=== PATIENT | female | born 1990 | race Caucasian/White ===

== ENCOUNTER → 2017-11-25 | Emergency (ER) | payer OTHER ==
[~2017-11-25] VITALS: Ht 165.1 cm; Wt 74.4 kg
[~2017-11-25] MED LIST: AMOX1TAB12 PO; DOLOGESIC CAPSU1 CAP PO; INTESTINEX680 MG PO; PEPCID20 MG PO; ZOFRAN4 MG PO
== END | disposition home or self-care (01) ==
LOC: ER 17:01
DX: B34.9 Viral infection, unspecified (principal)

== ENCOUNTER 2018-02-11 03:22 | Emergency (ER) | payer OTHER ==
[~2018-02-11] VITALS: Ht 165.1 cm; Wt 72.6 kg
[2018-02-11] MEDS ORDERED: ZANTAC300 MG PO (07:08)
[2018-02-11] MEDS ORDERED: LEVSIN/SL0.125 MG PO (07:08)
[2018-02-11] MEDS ORDERED: ZOFRAN4 MG PO (07:08)
[2018-02-11] MEDS ORDERED: INTESTINEX680 M1 PO (07:08)
== END 2018-02-11 07:39 | disposition home or self-care (01) ==
LOC: ER 03:22
DX: K52.89 Other specified noninfective gastroenteritis and colitis (principal); E86.0 Dehydration

== ENCOUNTER 2018-07-22 10:46 | Emergency (ER) | payer OTHER ==
[~2018-07-22] VITALS: Ht 167.6 cm; Wt 75.3 kg
[~2018-07-22 10:46] MED LIST changes: +INTESTINEX680 M1 PO; +LEVSIN/SL0.125 MG PO; +ZANTAC300 MG PO
[2018-07-22] MEDS ORDERED: SYNTHROID50 MCG PO (10:56)
== END 2018-07-22 12:53 | disposition home or self-care (01) ==
LOC: ER 10:46
DX: B34.9 Viral infection, unspecified (principal)

== ENCOUNTER 2018-09-25 13:04 | Emergency (ER) | payer OTHER ==
[~2018-09-25] VITALS: Ht 167.6 cm; Wt 81.2 kg
[~2018-09-25 13:04] MED LIST changes: +SYNTHROID50 MCG PO
== END 2018-09-25 16:41 | disposition home or self-care (01) ==
LOC: ER 13:04
DX: B34.9 Viral infection, unspecified (principal)

== ENCOUNTER 2018-09-30 12:14 | Emergency (ER) | payer OTHER ==
[~2018-09-30] VITALS: Ht 170.2 cm; Wt 74.8 kg
[2018-09-30] MEDS ORDERED: ZOFRAN8 MG PO (16:18)
[2018-09-30] MEDS ORDERED: INTESTINEX680 M1 PO (16:18)
[2018-09-30] MEDS ORDERED: ZITHROMAX TRI-500 MG PO (16:18)
[2018-09-30] MEDS ORDERED: MEDROLPACK PO (16:18)
== END 2018-09-30 20:31 | disposition home or self-care (01) ==
LOC: ER 12:14
DX: B34.9 Viral infection, unspecified (principal); K29.00 Acute gastritis without bleeding

== ENCOUNTER 2021-03-11 19:57 | Emergency (ER) | payer OTHER ==
[~2021-03-11] VITALS: Ht 167.6 cm; Wt 86.2 kg
[~2021-03-11 19:57] MED LIST changes: +MEDROLPACK PO; +ZITHROMAX TRI-500 MG PO; +ZOFRAN8 MG PO
== END 2021-03-12 00:33 | disposition home or self-care (01) ==
LOC: ER 19:57
DX: E07.89 Other specified disorders of thyroid (principal); F06.4 Anxiety disorder due to known physiological condition

== ENCOUNTER 2021-09-11 19:49 | Emergency (ER) | payer OTHER ==
[~2021-09-11] VITALS: Ht 167.6 cm; Wt 81.6 kg
[2021-09-11] MEDS ORDERED: FLEXERIL 10 MG (20:41)
[2021-09-11] MEDS ORDERED: NORFLEX100MG PO (22:06)
== END 2021-09-11 22:16 | disposition home or self-care (01) ==
LOC: ER 19:49
DX: M54.50 Low back pain, unspecified (principal); M51.26 Other intervertebral disc displacement, lumbar region

== ENCOUNTER 2023-02-14 08:39 | Emergency (ER) | payer OTHER ==
[~2023-02-14] VITALS: Ht 165.1 cm; Wt 83.0 kg
[~2023-02-14 08:39] MED LIST changes: +FLEXERIL 10 MG; +NORFLEX100MG PO
== END 2023-02-14 09:59 | disposition home or self-care (01) ==
LOC: ER 08:39
DX: J06.9 Acute upper respiratory infection, unspecified (principal)

== ENCOUNTER 2024-06-01 17:13 | Emergency (ER) | payer OTHER ==
[~2024-06-01] VITALS: Ht 152.4 cm; Wt 87.5 kg
[2024-06-01] MEDS ORDERED: DEXAMETHASONE SODIUM PHOSPHATE 4 MG/ML VIAL IM ONE (20:00)
[2024-06-01] MEDS ORDERED: KETOROLAC TROMETHAMINE 30 MG VIAL IM ONE (20:00)
[2024-06-01] MEDS ORDERED: ORPHENADRINE CITRATE 30 MG/ML AMPUL IM ONE (20:00)
== END 2024-06-01 21:07 | disposition home or self-care (01) ==
LOC: ER 17:15
DX: M62.838 Other muscle spasm (principal); E03.9 Hypothyroidism, unspecified